=== PATIENT | female | born 1935 | race Caucasian/White ===

== ENCOUNTER 2018-11-08 13:53 | Outpatient (CLI) | payer MEDICARE ==
--- NOTE | 2018-11-08 15:36 | ULT ---
THYROID ULTRASOUND: INDICATIONS: Thyroid nodule. COMPARISON: No prior imaging comparisons available. FINDINGS: Right thyroid lobe is approximately 4 cm in length and left thyroid lobe is between 3 and 4 cm in olivia gth. The thyroid isthmus is 3 mm in thickness. There are a few scattered subcentimeter foci of altered echotexture involving the thyroid lobes, the largest of which is located within the lower pole right thyroid lobe, approximately 6 mm in diameter. The additional nodules are punctate, 2 to 4 mm in size. No dominant suspicious nodule otherwise de monstrated. IMPRESSION: A few small, subcentimeter foci of altered echotexture, the largest of which measures approximately 6 mm, demonstrated within the thyroid gland. POS: [facility]
== END 2018-11-08 13:54 | disposition home or self-care (01) ==
LOC: SCSULT 13:53
PROVIDERS: ATTEND Internal Medicine Cardiovascular Disease
DX: E04.1 Nontoxic single thyroid nodule (principal); M79.89 Other specified soft tissue disorders
CPT/HCPCS: 36415; 76536; 85379; 87086